=== PATIENT | male | born 1955 | race Caucasian/White ===

== ENCOUNTER 2021-10-05 10:05 | Emergency (ER) | payer OTHER, BC ==
[2021-10-05] MEDS ORDERED: Sodium Chloride 0.9% 1,000 ML IV ONE (10:14)
[2021-10-05] MEDS ORDERED: HYDROmorphone 0.5 MG/0.5 ML Syringe IVPUSH ONE (10:17)
[2021-10-05] MEDS ORDERED: Iopamidol 612 MG/ML 100 ML Bottle IV PRN (10:43)
[2021-10-05] MEDS ORDERED: Sodium Chloride 0.9% 50 ML IV ONE (10:43)
[2021-10-05] MEDS ORDERED: Sodium Chloride 0.9% 10 ML Syringe FLUSH PRN (10:43)
[2021-10-05] MEDS ORDERED: Ketorolac 30 MG/ML SDV IVPUSH ONE (11:22)
== END 2021-10-05 11:35 | disposition home or self-care (01) ==
LOC: JP.ED 10:05
DX: S22.41XA Multiple fractures of ribs, right side, initial encounter for closed fracture (principal); S61.512A Laceration without foreign body of left wrist, initial encounter; S40.022A Contusion of left upper arm, initial encounter; V89.2XXA Person injured in unspecified motor-vehicle accident, traffic, initial encounter; Y92.410 Unspecified street and highway as the place of occurrence of the external cause
CPT/HCPCS: 36415; 71260; 74177; 80048; 85025; 96361; 96374; 96375; 99284; J1170; J1885; J3490; J7030; Q9967

== ENCOUNTER 2021-10-10 12:47 | Emergency (ER) | payer OTHER, BC | END 2021-10-10 13:14 | disposition left against medical advice (07) | LOC: JP.ED 12:47 | DX: Z53.21 Procedure and treatment not carried out due to patient leaving prior to being seen by health care provider (principal) ==

== ENCOUNTER 2023-09-11 12:43 | Emergency (ER) | payer MEDICARE, BC ==
[2023-09-11] MEDS ORDERED: Naloxone 0.4 MG/ML SDV IVPUSH PRN (13:25)
[2023-09-11] MEDS ORDERED: HYDROmorphone 0.5 MG/0.5 ML Syringe IVPUSH PRN (13:25)
[2023-09-11 13:40] LABS: BASOPHILS ABSOLUTE AUTO 0.06 K/uL (0.00-0.10); BASOPHILS PERCENT AUTO 0.8 % (0.1-1.3); EOSINOPHILS ABSOLUTE AUTO 0.01 K/uL (0.00-0.40); EOSINOPHILS PERCENT AUTO 0.1 % (0.0-5.4); HEMATOCRIT 36.3 % (38.4-49.7); HEMOGLOBIN 12.8 g/dL (12.9-16.9); IMMATURE GRAN ABSOLUTE AUTO 0.04 K/uL (0.00-0.23); IMMATURE GRAN PERCENT AUTO 0.6 % (0.0-0.7); LYMPHOCYTES ABSOLUTE AUTO 1.44 K/uL (0.8-3.3); LYMPHOCYTES PERCENT AUTO 20.2 % (11.4-47.7); MEAN CORPUSCULAR HEMOGLOBIN 29.6 pg (31.6-35.5); MEAN CORPUSCULAR HGB CONC 35.3 g/dL (31.6-35.5); MONOCYTES ABSOLUTE AUTO 0.73 K/uL (0.20-0.90); MONOCYTES PERCENT AUTO 10.3 % (3.3-12.6); NEUTROPHILS ABSOLUTE AUTO 4.84 K/uL (1.0-7.6); PLATELET COUNT,PLT 463 K/uL (130-375); RED BLOOD CELL COUNT 4.32 M/uL (4.14-5.76); WHITE BLOOD CELL COUNT,WBC 7.1 K/uL (3.2-11.0)
[2023-09-11] MEDS: Sodium Chloride 0.9% 1,000 ML IV SCH (13:41)
[2023-09-11] MEDS ORDERED: Iopamidol 612 MG/ML 100 ML Bottle IV PRN (13:53)
[2023-09-11 13:59] LABS: PROTHROMBIN TIME 10.7 sec (9.2-10.6)
[2023-09-11] MEDS ORDERED: Sodium Chloride 0.9% 80 ML IV SCH (14:00)
[2023-09-11 14:06] LABS: A/G RATIO 0.9 (1.2-2.2); ALANINE AMINOTRANSFERASE,ALT 169 U/L (12-78); ALBUMIN 3.2 g/dL (3.4-5.0); ALKALINE PHOSPHATASE 181 U/L (46-116); ASPARTATE AMNIOTRANSFERASE,AST 40 U/L (15-37); BILIRUBIN TOTAL 0.6 mg/dL (0.2-1.0); BLOOD UREA NITROGEN,BUN 25 mg/dL (7-18); CALCIUM 8.7 mg/dL (8.5-10.1); CARBON DIOXIDE,CO2 26 mmol/L (21-32); CHLORIDE,CL 103 mmol/L (100-108); CREATININE 1.2 mg/dL (0.8-1.3); EST CRCL DRUG DOSING (CG) 62.85 mL/min; ESTIMATED GFR 67 mL/min (>60); GLUCOSE RANDOM 95 mg/dL (74-106); POTASSIUM,K 4.5 mmol/L (3.6-5.2); PROTEIN TOTAL,TP 6.6 g/dL (6.4-8.2); SODIUM,NA 135 mmol/L (140-148)
[2023-09-11 14:18] LABS: ANION GAP 10.5 mmol/L (5.0-14.0)
[2023-09-11 14:31] LABS: CORONAVIRUS COVID-19 NAA NEGATIVE (NEGATIVE); INFLUENZA A NAA NEGATIVE (NEGATIVE); INFLUENZA B NAA NEGATIVE (NEGATIVE); RESPIRATORY SYNCYTIAL VIR NAA NEGATIVE (NEGATIVE)
[2023-09-11] MEDS: Sodium Chloride 0.9% 10 ML Syringe FLUSH ONE (14:36)
[2023-09-11 16:45] LABS: LYME AB IgG Negative (Negative); LYME AB IgM Negative (Negative)
== END 2023-09-11 16:20 | disposition home or self-care (01) ==
LOC: JP.ED 12:43
DX: M79.10 Myalgia, unspecified site (principal); R74.01 Elevation of levels of liver transaminase levels; Z86.16 Personal history of COVID-19
CPT/HCPCS: 0241U; 36415; 72131; 72131-26; 74177; 74177-26; 76377; 76377-26; 80053; 83605; 83690; 84145; 85025; 85610; 86618; 87468; 87469; 87484; 87798; 96360; 96361; 99284-25; J3490; J7030